=== PATIENT | male | born 1965 | race Hispanic/Latino ===

== ENCOUNTER 2016-09-18 17:03 | Emergency (ER) | payer MEDICAID ==
[2016-09-19] MEDS ORDERED: NORCO 5/325 PO ONE (01:46)
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
[2016-09-19 02:13] VITALS: BP 114/76
== END 2016-09-19 02:11 | disposition home or self-care (01) ==
LOC: ED 17:03
DX: L84 Corns and callosities (principal); M79.671 Pain in right foot; Z21 Asymptomatic human immunodeficiency virus [HIV] infection status; Z88.2 Allergy status to sulfonamides; Z88.1 Allergy status to other antibiotic agents; Z88.6 Allergy status to analgesic agent
CPT/HCPCS: 99283

== ENCOUNTER 2016-10-09 16:33 | Emergency (ER) | payer MEDICAID ==
[2016-10-10 02:54] VITALS: BP 100/60
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
== END 2016-10-10 03:07 | disposition home or self-care (01) ==
LOC: ED 16:33
DX: Z46.6 Encounter for fitting and adjustment of urinary device (principal); F17.200 Nicotine dependence, unspecified, uncomplicated; Z88.6 Allergy status to analgesic agent; Z88.8 Allergy status to other drugs, medicaments and biological substances
CPT/HCPCS: 99282

== ENCOUNTER 2016-10-20 18:10 | Emergency (ER) | payer MEDICAID ==
[2016-10-20] MEDS ORDERED: NORCO 7.5/325 PO ONE (20:46)
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
[2016-10-20 22:16] VITALS: BP 112/62
== END 2016-10-20 22:12 | disposition home or self-care (01) ==
LOC: ED 18:10
DX: T83.010A Breakdown (mechanical) of cystostomy catheter, initial encounter (principal); Z87.891 Personal history of nicotine dependence; Z88.2 Allergy status to sulfonamides; Z88.8 Allergy status to other drugs, medicaments and biological substances
CPT/HCPCS: 51702; 99283

== ENCOUNTER 2016-12-09 15:38 | Emergency (ER) | payer MEDICAID ==
--- NOTE | 2016-12-09 18:00 | Emergency Department Report ---
Entered by JEROD SALEH, acting as scribe for ANNELISE WOMACK NP. Chief Complaint: Tube Replacement Stated Complaint: CHANGE FOLI Time Seen by Provider: 12/09/16 17:55 - HPI History of Present Illness: Pt is non-toxic, non ill appearing, in no acute distress with c/o to have suprapubic catheter change that began today. Pt states that it hasn't been changed in 3-4 weeks. Patient states he supposed to get his catheter changed every month. Denies pain at sight Denies pus and drainage Denies chest pain and SOB - ROS Review of Systems: Denies pain to suprapubic catheter site/area. Denies pus and drainage from site. Denies chest pain and SOB - Exam Vital Signs: Vital Signs 12/09/16 17:47 Temperature 99.4 F Pulse Rate 98 H Respiratory 18 Rate Blood Pressure 122/63 O2 Sat by Pulse 99 Oximetry Physical Exam: Constitutional: Non toxic appearing, NAD. Cardiovascular: Normal rate and rhythm with normal S1/S2 sounds. Respiratory: No respiratory distress. Lung sounds clear to auscultation bilaterally. Abdomen: Abdomen is non-distended, soft with no tenderness to palpation in all quadrants. : suprapubic catheter present with no drainage and no sign of infection MSE screening note: Focused history and physical exam performed. Due to findings the following was ordered: Patient was seen by this provider in triage and he will be sent back to main ED side to be seen by another provider ED Disposition for MSE Condition: Stable This documentation as recorded by the scribe,JEROD SALEH,accurately reflects the service I personally performed and the decisions made by ,ANNELISE WOMACK NP.
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
[2016-12-10 07:13] VITALS: BP 125/65
== END 2016-12-10 08:01 | disposition home or self-care (01) ==
LOC: ED 15:38
DX: Z46.6 Encounter for fitting and adjustment of urinary device (principal); G82.20 Paraplegia, unspecified; F17.200 Nicotine dependence, unspecified, uncomplicated; Z88.2 Allergy status to sulfonamides; Z88.6 Allergy status to analgesic agent; Z88.8 Allergy status to other drugs, medicaments and biological substances
CPT/HCPCS: 51702

== ENCOUNTER 2017-02-11 14:51 | Emergency (ER) | payer MEDICAID ==
--- NOTE | 2017-02-11 16:02 | Emergency Department Report ---
Stated Complaint: RT LEG PAIN Time Seen by Provider: 02/11/17 15:58 - HPI History of Present Illness: Pt states he fell out of his wheelchair today. PT c/o R knee pain. - ROS Review of Systems: +R knee pain - Exam Physical Exam: pt examined in wheelchair no bruising or swelling noted MSE screening note: Focused history and physical exam performed. Due to findings the following was ordered: xr ED Disposition for MSE Condition: Stable
[2017-02-11 16:03] VITALS: BP 111/72
== END 2017-02-11 20:15 | disposition left against medical advice (07) ==
LOC: ED 14:51
DX: M79.604 Pain in right leg (principal); Z53.21 Procedure and treatment not carried out due to patient leaving prior to being seen by health care provider

== ENCOUNTER 2017-05-21 15:33 | Emergency (ER) | payer MEDICAID ==
[2017-05-21 16:48] VITALS: BP 112/74
== END 2017-05-21 22:42 | disposition home or self-care (01) ==
LOC: ED 15:33
DX: R53.1 Weakness (principal); Z53.21 Procedure and treatment not carried out due to patient leaving prior to being seen by health care provider

== ENCOUNTER 2017-06-07 12:04 | Emergency (ER) | payer MEDICAID ==
[2017-06-07 12:11] VITALS: BP 104/68
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
== END 2017-06-07 20:40 | disposition home or self-care (01) ==
LOC: ED 12:04
DX: T83.84XA Pain due to genitourinary prosthetic devices, implants and grafts, initial encounter (principal); R82.90 Unspecified abnormal findings in urine; F17.200 Nicotine dependence, unspecified, uncomplicated; Z98.890 Other specified postprocedural states; Z21 Asymptomatic human immunodeficiency virus [HIV] infection status
CPT/HCPCS: 99282

== ENCOUNTER 2017-07-07 17:34 | Emergency (ER) | payer MEDICAID ==
[2017-07-07 19:49] VITALS: BP 122/70
== END 2017-07-08 14:00 | disposition left against medical advice (07) ==
LOC: ED 17:34
DX: Z53.21 Procedure and treatment not carried out due to patient leaving prior to being seen by health care provider (principal)

== ENCOUNTER 2017-10-08 17:21 | Emergency (ER) | payer MEDICAID ==
[2017-10-08 23:20] VITALS: BP 120/75
[2017-10-09] MEDS ORDERED: NORCO 7.5/325 PO ONE (00:41)
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
== END 2017-10-09 01:15 | disposition home or self-care (01) ==
LOC: ED 17:21
DX: M79.604 Pain in right leg (principal); G89.29 Other chronic pain; F11.10 Opioid abuse, uncomplicated; F17.200 Nicotine dependence, unspecified, uncomplicated; Z88.6 Allergy status to analgesic agent; Z88.2 Allergy status to sulfonamides
CPT/HCPCS: 99283

== ENCOUNTER 2017-10-20 16:00 | Emergency (ER) | payer MEDICAID ==
[2017-10-20 16:09] VITALS: BP 107/57
== END 2017-10-20 19:05 | disposition left against medical advice (07) ==
LOC: ED 16:00
DX: M79.604 Pain in right leg (principal); Z53.21 Procedure and treatment not carried out due to patient leaving prior to being seen by health care provider

== ENCOUNTER 2018-10-30 23:02 | Emergency (ER) | payer MEDICAID ==
[2018-10-30 23:09] VITALS: BP 118/72
[2018-10-30 23:51] LABS: Basophils # (Auto) 0.1 K/mm3 (0.0-0.1); Basophils % (Auto) 0.6 % (0.0-1.8); Eosinophils # (Auto) 0.1 K/mm3 (0.0-0.4); Eosinophils % (Auto) 0.6 % (0.0-4.3); Hematocrit 51.1 % (35.5-45.6); Hemoglobin 17.8 gm/dl (11.8-15.2); Lymphocytes # (Auto) 3.7 K/mm3 (1.2-5.4); Lymphocytes % (Auto) 28.8 % (13.4-35.0); Mean Corpuscular HGB Conc 35 % (32-34); Mean Corpuscular Volume 102 fl (84-94); Monocytes # (Auto) 1.1 K/mm3 (0.0-0.8); Monocytes % (Auto) 8.8 % (0.0-7.3); Platelet Count 211 K/mm3 (140-440); Red Blood Count 5.02 M/mm3 (3.65-5.03); Red Cell Distribution Width 14.6 % (13.2-15.2)
[2018-10-31 00:11] LABS: BUN/Creatinine Ratio 13; Blood Urea Nitrogen 12 mg/dL (9-20); Calcium 9.5 mg/dL (8.4-10.2); Hemolysis Index 53
--- NOTE | 2018-10-31 01:35 | ED Elopement Review ---
ED Pt Elopement review - Results review Lab results: Mr. Abernathy declined care according to RN who briefly interacted with him. He politely requested transport home. He eloped from treatment room without my evaluation. I reviewed labs. no need for action without anemia. Vital signs are normal. Laboratory Tests 10/30/18 10/30/18 23:25 23:25 WBC 13.0 H RBC 5.02 Hgb 17.8 H Hct 51.1 H MCV 102 H MCH 36 H MCHC 35 H RDW 14.6 Plt Count 211 Lymph % (Auto) 28.8 Mcmullen % (Auto) 8.8 H Eos % (Auto) 0.6 Baso % (Auto) 0.6 Lymph # 3.7 Mcmullen # 1.1 H Eos # 0.1 Baso # 0.1 Seg Neutrophils % 61.2 Seg Neutrophils # 7.9 H Sodium 140 Potassium 3.9 Chloride 99.7 Carbon Dioxide 23 Anion Gap 21 BUN 12 Creatinine 0.9 Estimated GFR > 60 BUN/Creatinine Ratio 13 Glucose 96 Calcium 9.5 - Call Back decision Pt Call Back Decision: No action required
== END 2018-10-31 01:50 ==
LOC: ED 23:02
DX: K62.5 Hemorrhage of anus and rectum (principal)
CPT/HCPCS: 36415; 80048; 85025; 99281; 99283

== ENCOUNTER 2018-11-27 14:31 | Emergency (ER) | payer MEDICAID ==
--- NOTE | 2018-11-27 18:26 | Event Note ---
ED Screening Note ED Screening Note: returned to ED in nad at 1800 This initial assessment/diagnostic orders/clinical plan/treatment(s) is/are s ubject to change based on patients health status, clinical progression and re- assessment by fellow clinical providers in the ED. Further treatment and workup at subsequent clinical providers discretion. Patient/guardian urged not to elope from the ED as their condition may be serious if not clinically assessed and managed. Initial orders include:
== END 2018-11-27 16:30 ==
LOC: ED 14:31
DX: R69 Illness, unspecified (principal); Z53.21 Procedure and treatment not carried out due to patient leaving prior to being seen by health care provider

== ENCOUNTER 2018-11-27 18:34 | Emergency (ER) | payer MEDICAID ==
--- NOTE | 2018-11-27 18:41 | Event Note ---
ED Screening Note ED Screening Note: HERE EARLIER TODAY LEFT FOR OVER 3 HOURS NOW BACK CO VOMITING NAD This initial assessment/diagnostic orders/clinical plan/treatment(s) is/are subject to change based on patients health status, clinical progression and re- assessment by fellow clinical providers in the ED. Further treatment and workup at subsequent clinical providers discretion. Patient/guardian urged not to elope from the ED as their condition may be serious if not clinically assessed and managed. Initial orders include:
== END 2018-11-27 19:10 | disposition left against medical advice (07) ==
LOC: ED 18:34
DX: R11.10 Vomiting, unspecified (principal); Z53.21 Procedure and treatment not carried out due to patient leaving prior to being seen by health care provider

== ENCOUNTER 2018-11-28 00:35 | Emergency (ER) | payer MEDICAID ==
[2018-11-28 00:46] VITALS: BP 114/65
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
== END 2018-11-28 03:34 | disposition home or self-care (01) ==
LOC: ED 00:35
DX: S89.91XA Unspecified injury of right lower leg, initial encounter (principal); F17.200 Nicotine dependence, unspecified, uncomplicated; Z71.1 Person with feared health complaint in whom no diagnosis is made; Z99.3 Dependence on wheelchair; Z98.890 Other specified postprocedural states; Z88.6 Allergy status to analgesic agent; Z88.2 Allergy status to sulfonamides; Z79.899 Other long term (current) drug therapy; X58.XXXA Exposure to other specified factors, initial encounter; Y93.89 Activity, other specified; Y92.009 Unspecified place in unspecified non-institutional (private) residence as the place of occurrence of the external cause; Y99.8 Other external cause status

== ENCOUNTER 2019-03-25 13:44 | Emergency (ER) | payer MEDICAID | END 2019-03-25 17:21 | LOC: ED 13:44 | DX: R11.2 Nausea with vomiting, unspecified (principal); Z53.21 Procedure and treatment not carried out due to patient leaving prior to being seen by health care provider ==

== ENCOUNTER 2019-04-07 06:11 | Inpatient (IN) | payer MEDICAID ==
[2019-04-07] MEDS ORDERED: NACL 0.9% 1000 ML 2,000 ML ONE (06:32)
[2019-04-07 06:50] VITALS: BP 111/79
--- NOTE | 2019-04-07 06:58 | XRay Report ---
CHEST 1 VIEW INDICATION / CLINICAL INFORMATION: possible Sepsis. COMPARISON: None available. FINDINGS: SUPPORT DEVICES: None. HEART / MEDIASTINUM: No significant abnormality. LUNGS / PLEURA: Increasing patchy airspace density within the right lower lung, new since 11/26/2013 c oncerning for developing pneumonia. Signer Name: Ion Matthew MD Signed: 04/07/2019 6:54 AM Workstation Name: [id number]
[2019-04-07 07:01] LABS: Basophils # (Auto) 0.1 K/mm3 (0.0-0.1); Basophils % (Auto) 0.4 % (0.0-1.8); Hematocrit 50.3 % (35.5-45.6); Hemoglobin 17.1 gm/dl (11.8-15.2); Lymphocytes # (Auto) 1.4 K/mm3 (1.2-5.4); Lymphocytes % (Auto) 7.4 % (13.4-35.0); Mean Corpuscular HGB Conc 34 % (32-34); Mean Corpuscular Volume 98 fl (84-94); Monocytes # (Auto) 1.3 K/mm3 (0.0-0.8); Monocytes % (Auto) 7.1 % (0.0-7.3); Platelet Count 211 K/mm3 (140-440); Red Blood Count 5.11 M/mm3 (3.65-5.03); Red Cell Distribution Width 16.5 % (13.2-15.2)
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
[2019-04-07 07:11] LABS: Bacteria,Urine 4+ /HPF (Negative); Bilirubin,Urine NEG (Negative); Blood,Urine LG (Negative); Color,Urine Amber (Yellow); Urobilinogen,Urine < 2.0 mg/dL (<2.0)
[2019-04-07 07:11] LABS: INR 0.97 (0.87-1.13)
[2019-04-07 07:24] LABS: Albumin 3.7 g/dL (3.9-5)
[2019-04-07 07:35] LABS: WBC,Urine > 182.0 /HPF (0.0-6.0)
[2019-04-07] MEDS ORDERED: CEFEPIME/NS 2 GM/100 ML 2 GM/100 ML BAG IV ONE (07:44)
[2019-04-07] MEDS ORDERED: NACL 0.9% 1000 ML IV ONE (08:22)
--- NOTE | 2019-04-07 08:56 | Cat Scan Report ---
CT ABDOMEN AND PELVIS WITHOUT CONTRAST HISTORY: Urinary tract infection, fever COMPARISON: None. TECHNIQUE: Axial CT images were obtained through the abdomen and pelvis without IV contrast. Sagittal and coronal reformatted images. All CT scans at this location are performed using CT dose reduction for ALARA by means of automated exposure control. FINDINGS: CT ABDOMEN: Lung Bases: There is mild subpleural scarring or atelectasis at the right lung base. No mass, infiltr ate or effusion. Liver: No significant abnormality. Biliary: No significant abnormality. Spleen: No significant abnormality. Unenlarged. Pancreas: No significant abnormality. Adrenals: No significant abnormality. Kidneys: There is moderate bilateral hydronephrosis and perinephric stranding. No obvious focal renal lesion on noncontrast CT. No renal or ureteral stones. The ureters are dilated down to the UVJs with out obvious obstructing lesion. The bladder is decompressed with a suprapubic Chavira catheter. Lymphatics: No lymphadenopathy. Vasculature: No significant abnormality. Bowel/Peritoneum: No significant abnormality. No free air. No free fluid. Normal appendix. CT PELVIS: : The bladder is decompressed. The prostate gland is normal size. Osseous Structures: Mild osteopenia and minimal degenerative changes in the spine. No fracture or hamida picious bony lesion Additional Findings: None IMPRESSION: There is moderate bilateral hydronephrosis and perinephric stranding. The ureters are dilated down to the UVJs. The bladder is decompressed and contains a Chavira catheter. No obvious obstructing lesions in the distal ureters are identified. Chavira catheter dysfunction Pyelonephritis cannot be commented on without IV contrast. Pyelonephritis cannot be excluded. Signer Name: William Herrera Jr, MD Signed: 04/07/2019 8:52 AM Workstation Name: [id number]
--- NOTE | 2019-04-07 12:52 | Event Note ---
Date: 04/07/19 Left AMA prior to me seeing patient. ED staff for discharge.
== END 2019-04-07 11:45 | disposition left against medical advice (07) | DRG 871 ==
LOC: ED 06:11 → 4A 09:41
PROVIDERS: ADMIT Internal Medicine; ATTEND Internal Medicine
DX: A41.9 Sepsis, unspecified organism (principal); J18.9 Pneumonia, unspecified organism; T83.511A Infection and inflammatory reaction due to indwelling urethral catheter, initial encounter; Y83.8 Other surgical procedures as the cause of abnormal reaction of the patient, or of later complication, without mention of misadventure at the time of the procedure; Y92.89 Other specified places as the place of occurrence of the external cause; F17.210 Nicotine dependence, cigarettes, uncomplicated; Z53.29 Procedure and treatment not carried out because of patient's decision for other reasons; N12 Tubulo-interstitial nephritis, not specified as acute or chronic
CPT/HCPCS: 36415; 71045; 74176; 80053; 81001; 82140; 82805; 85025; 85610; 87040; 93005; 93010; 96374; G0378; J0692; J7030

== ENCOUNTER 2019-04-07 12:34 | Emergency (ER) | payer MEDICAID ==
--- NOTE | 2019-04-07 12:38 | Emergency Department Report ---
Blank Doc - Documentation Documentation: 53-year-old male that presents with PNA. Was seen this morning in the ED but left AMA. This initial assessment/diagnostic orders/clinical plan/treatment(s) is/are subject to change based on patient's health status, clinical progression and re- assessment by fellow clinical providers in the ED. Further treatment and workup at subsequent clinical providers discretion. Patient/guardians urged not to elope from the ED as their condition may be serious if not clinically assessed and managed. Initial orders include: 1- Patient sent to MAIN ED for further evaluation and treatment 2- labs and imaging studies has been done this morning
[2019-04-07 12:39] VITALS: BP 127/71
--- NOTE | 2019-04-07 13:09 | Emergency Department Report ---
Blank Doc - Documentation Documentation: Patient is a 53-year-old male that presents emergency room earlier this morning for fever and tachycardia. Patient was found to be septic secondary to pneumonia and UTI, pyelonephritis. Patient was admitted to the hospitalist service however the patient signed out AMA prior to the hospitalist seen the patient. Patient to return to the hospital for admission. Patient noted to the hospitalist service. Hospitalist consult and in the hospitalist accepted the patient. See previous note for details and diagnosis.
== END 2019-04-07 13:00 | disposition left against medical advice (07) ==
LOC: ED 12:34
DX: J18.9 Pneumonia, unspecified organism (principal); Z53.21 Procedure and treatment not carried out due to patient leaving prior to being seen by health care provider

== ENCOUNTER 2019-04-07 18:51 | Emergency (ER) | payer MEDICAID ==
[2019-04-07 20:21] VITALS: BP 106/61
== END 2019-04-07 19:30 | disposition left against medical advice (07) ==
LOC: ED 18:51
DX: R06.02 Shortness of breath (principal); Z53.21 Procedure and treatment not carried out due to patient leaving prior to being seen by health care provider

== ENCOUNTER 2019-07-21 17:51 | Emergency (ER) | payer MEDICAID ==
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
[2019-07-22 00:41] VITALS: BP 114/65
== END 2019-07-22 07:00 | disposition home or self-care (01) ==
LOC: ED 17:51
DX: T82.867A Thrombosis due to cardiac prosthetic devices, implants and grafts, initial encounter (principal); F17.200 Nicotine dependence, unspecified, uncomplicated; Z79.899 Other long term (current) drug therapy; Z88.6 Allergy status to analgesic agent; Z88.2 Allergy status to sulfonamides; X58.XXXA Exposure to other specified factors, initial encounter
CPT/HCPCS: 99283

== ENCOUNTER 2020-05-27 20:27 | Emergency (ER) | payer MEDICAID ==
[2020-05-28 05:23] VITALS: BP 106/62
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
== END 2020-05-28 08:43 | disposition home or self-care (01) ==
LOC: ED 20:27
DX: R50.9 Fever, unspecified (principal); Z00.00 Encounter for general adult medical examination without abnormal findings; Z98.890 Other specified postprocedural states; Z21 Asymptomatic human immunodeficiency virus [HIV] infection status; Z79.899 Other long term (current) drug therapy; Z88.8 Allergy status to other drugs, medicaments and biological substances

== ENCOUNTER 2022-03-06 14:32 | Emergency (ER) | payer MEDICAID ==
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
[2022-03-06 23:46] VITALS: BP 103/57
== END 2022-03-06 23:20 | disposition home or self-care (01) ==
LOC: ED 14:32
DX: N39.0 Urinary tract infection, site not specified (principal); N12 Tubulo-interstitial nephritis, not specified as acute or chronic; Z46.6 Encounter for fitting and adjustment of urinary device; Z21 Asymptomatic human immunodeficiency virus [HIV] infection status; Z91.09 Other allergy status, other than to drugs and biological substances
CPT/HCPCS: 51702; 99283